=== PATIENT | male | born 1935 | race African-American/Black ===

== ENCOUNTER 2020-09-13 20:40 | Inpatient (IN) ==
[2020-09-13] MEDS ORDERED: DOPamine 800 MG/250 ML PREMIX IV PRN (22:01)
[2020-09-13] MEDS ORDERED: ALBUTEROL 2.5 MG/3 ML NEB RESP TX PRN (23:02)
[2020-09-13] MEDS: SODIUM CHLORIDE 0.9% 1,000 ML IV SCH (23:29)
[2020-09-13] MEDS ORDERED: ENOXAPARIN 40 MG/0.4 ML SYRINGE SUBCUT SCH (23:30)
[2020-09-14 04:06] LABS: Basophils % 0.2 % (0.0-0.8); Eosinophils % 0.2 % (0.00-10.9); Hematocrit 40.7 VOL% (42.0-52.0); Hemoglobin 12.7 GM/DL (14.0-18.0); Immature Granulocytes % 0.5 %; Immature Granulocytes Absolute 0.03 #; Lymphocytes # 0.6 10*3/uL (1.4-4.0); Lymphocytes % 9.2 % (21.2-54.2); Mean Corpuscular HGB Conc 31.2 GM/DL (32-36); Mean Corpuscular Volume 84.3 FL (87-102); Mean Platelet Volume 9.3 FL (9.6-12.0); Monocytes % 5.3 % (1.7-12.7); Neutrophils % 84.6 % (38.7-73.9); Platelet Count 214 T/CUMM (130-400); Red Blood Count 4.83 MC/CUMM (3.8-5.5); Red Cell Distribution Width 15.7 % (9.3-17.3); White Blood Count 6.4 T/CUMM (4-12)
[2020-09-14 04:29] LABS: Albumin 3.5 G/DL (3.4-5.0); Bilirubin,Total 0.4 MG/DL (0.2-1.0); Calcium 9.4 MG/DL (8.5-10.1); Osmolality,Calculated 281.7 MOS/KG (273-304); Total Protein 7.2 G/DL (6.4-8.3)
[2020-09-14] MEDS: SODIUM CHLORIDE 0.9% 1,000 ML IV SCH ×2 (09:43→20:09)
[2020-09-14 10:31] LABS: Blood Urea Nitrogen 22 MG/DL (7-18); Calcium 9.5 MG/DL (8.5-10.1); Estimated Glom Filtration Rate 93 ML/MIN; Glucose 107 MG/DL (74-106); Osmolality,Calculated 279.5 MOS/KG (273-304); Thyroid Stimulating Hormone 0.458 uIU/ml (0.358-3.74)
[2020-09-14] MEDS ORDERED: DIAZEPAM 5 MG TABLET PO ONE (13:03)
[2020-09-14] MEDS ORDERED: ceFAZolin 1,000 MG in SYRINGE 1 EACH IV ONE (13:03)
[2020-09-14] MEDS ORDERED: ceFAZolin 1,000 MG VIAL IRRIG ONE (13:03)
[2020-09-14] MEDS ORDERED: diphenhydrAMINE CAP 25 MG CAPSULE PO ONE (13:03)
[2020-09-14] MEDS ORDERED: fentaNYL 100 MCG/2 ML VIAL ONE (15:55)
[2020-09-14] MEDS ORDERED: LIDOCAINE 1% 20 ML VIAL ONE (15:55)
[2020-09-14] MEDS ORDERED: MIDAZOLAM 2 MG/2 ML VIAL ONE (15:55)
[2020-09-14] MEDS ORDERED: ceFAZolin 1,000 MG VIAL ONE (15:57)
[2020-09-14] MEDS ORDERED: diphenhydrAMINE CAP 25 MG CAPSULE ONE (16:02)
[2020-09-14] MEDS ORDERED: DIAZEPAM 5 MG TABLET ONE (16:02)
[2020-09-14] MEDS ORDERED: TISSUE ADHESIVE 1 EACH APPLICATOR TOP ONE (16:49)
[2020-09-14] MEDS ORDERED: ONDANSETRON 4 MG/2 ML VIAL IV PRN (17:28)
[2020-09-14] MEDS ORDERED: ALUMINUM/MAGNES/SIMETH MAX STR 30 ML UDCUP PO PRN (17:28)
[2020-09-14] MEDS ORDERED: amLODIPine 5 MG TABLET PO SCH (21:00)
[2020-09-15] MEDS: amLODIPine 5 MG TABLET PO SCH ×2 (00:20→09:03)
[2020-09-15 05:29] LABS: Basophils % 0.2 % (0.0-0.8); Eosinophils % 0.2 % (0.00-10.9); Hematocrit 43.7 VOL% (42.0-52.0); Hemoglobin 13.4 GM/DL (14.0-18.0); Immature Granulocytes % 0.5 %; Immature Granulocytes Absolute 0.03 #; Lymphocytes # 0.4 10*3/uL (1.4-4.0); Lymphocytes % 5.4 % (21.2-54.2); Mean Corpuscular HGB Conc 30.7 GM/DL (32-36); Mean Corpuscular Volume 87.1 FL (87-102); Mean Platelet Volume 11.1 FL (9.6-12.0); Monocytes % 5.4 % (1.7-12.7); Neutrophils % 88.3 % (38.7-73.9); Platelet Count 83 T/CUMM (130-400); Red Blood Count 5.02 MC/CUMM (3.8-5.5); White Blood Count 6.5 T/CUMM (4-12)
[2020-09-15 05:34] LABS: INR 2.2; PT Patient Result 22.5 SECS (9.8-11.9)
[2020-09-15 06:28] LABS: Acanthocytes Few; Hypochromasia 1+; Microcytosis 1+
[2020-09-15 06:29] LABS: Ovalocytes Slight
[2020-09-15] MEDS: SODIUM CHLORIDE 0.9% 1,000 ML IV SCH (06:30)
[2020-09-15 07:01] LABS: Albumin 2.8 G/DL (3.4-5.0); Bilirubin,Total 0.4 MG/DL (0.2-1.0); Calcium 8.8 MG/DL (8.5-10.1); Osmolality,Calculated 277.5 MOS/KG (273-304); Total Protein 6.7 G/DL (6.4-8.3)
[2020-09-15] MEDS ORDERED: NON-FORMULARY MEDICATION (Olmesartan-Hydrochlorothiazide 20-12.5 mg Tablet) PO SCH (09:00)
[2020-09-15] MEDS ORDERED: LEVOTHYROXINE 75 MCG TABLET PO SCH (09:00)
[2020-09-15] MEDS ORDERED: SIMVASTATIN 10 MG TABLET PO SCH (09:00)
[2020-09-15] MEDS ORDERED: ASPIRIN EC 325 MG TABLET PO SCH (09:00)
== END 2020-09-15 12:00 | disposition hospice, home (50) | DRG 244 ==
LOC: SUATTDRO 20:51 → N.CC 20:51
PROVIDERS: ADMIT Surgery; ATTEND Internal Medicine